=== PATIENT | female | born 1995 | race Caucasian/White ===

== ENCOUNTER 2017-03-23 12:52 | Emergency (ER) | payer BC, OTHER ==
[2017-03-23 12:58] VITALS: RESP 18; TEMP 98.4
--- NOTE | 2017-03-23 14:25 | EDPHY ---
H & P Stated Complaint: Asthma exacerbation; in NAD Time Seen by Provider: 03/23/17 14:24 - Personal History LMP (Females 10-55): 8-14 Days Ago Current Tetanus Diphtheria and Acellular Pertussis (TDAP): Yes - Medical/Surgical History Hx Asthma: Yes Other PMH: asthma - Social History Smoking Status: Never smoked Constitutional: Initial Vital Signs Temperature (C) 36.9 C 03/23/17 12:56 Heart Rate 94 03/23/17 12:56 Respiratory Rate 18 03/23/17 12:56 Blood Pressure 123/92 H 03/23/17 12:56 O2 Sat (%) 97 03/23/17 12:56 O2 Delivery Mode Room Air Allergies/Adverse Reactions: No Known Allergies Allergy (Unverified 03/23/17 12:55) Home Medications: Medication Instructions Recorded Albuterol [Proventil Inhaler HFA 1 - 2 puffs IH Q4H 03/23/17 (*)] Fluticasone Hfa 110 Mcg [Flovent 120 puffs IH 03/23/17 Hfa] Medical Decision Making - Diagnostics Imaging: I viewed and interpreted images myself ED Course/Re-evaluation: CHIEF COMPLAINT: Dyspnea, chills HISTORY OF PRESENT ILLNESS: The patient is a 21 y/o female with a history of asthma 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 The patient states she started getting a cold prior to dyspnea onset with sore throat, nasal congestion, and pleuritic upper chest pain. She then developed associated chills and myalgias. She describes her dyspnea as difficulty taking a deep breath. No fever, vomiting , abdominal pain, diarrhea. She is otherwise healthy. She did not get a flu vaccination this year. REVIEW OF SYSTEMS: A 10 point review of systems was performed and is negative with the exception of the elements mentioned in the history of present illness. PHYSICAL EXAM: HR, BP, O2 Sat, RR. Temp noted General Appearance: Alert, well hydrated, appropriate, and non-toxic appearing. Head: Atraumatic without scalp tenderness or obvious injury Eyes: Pupils equal, round, reactive to light and accommodation, EOMI, no trauma , no injection. Ears: Clear bilaterally, no perforation, normal landmarks Nose: Atraumatic, no rhinorrhea, clear. Throat: There is no erythema or exudates, no lesions, normal tonsils, mucus membranes moist. Neck: Supple, nontender, no lymphadenopathy. Respiratory: No retractions, no distress, no wheezes, and no accessory muscle use. Lungs are have coarse rhonchi to auscultation bilaterally. Cardiovascular: Regular rate and rhythm, no murmurs, rubs, or gallops. Good capillary refill all extremities. Gastrointestinal: Abdomen is soft, nontender, non-distended, no masses, no rebound, no guarding, no peritoneal signs. Musculoskeletal: Normal active ROM of all extremities, atraumatic. Neurological: Alert, appropriate, and interactive. The patient has non-focal cranial nerves, motor, sensory, and cerebellar exam. Skin: No rashes, good turgor, no nodules on palpation. 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 [employer] student. Nonsmoker DIAGNOSTICS/PROCEDURES/CRITICAL CARE TIME: Chest x-ray: bronchitis DIFFERENTIAL DIAGNOSIS: The differential diagnosis for the patient's shortness of breath and chills included but was not limited to influenza, asthma exacerbation due to URI, viral syndrome, pneumonia, myocardial infarction , acute mountain sickness, high altitude pulmonary edema, congestive heart failure, and pulmonary embolus. MEDICAL DECISION MAKING: This is a healthy 21 y/o female with a history of asthma who presents with a 2- day history of dyspnea, chills, and myalgias. Home treatments have not improved symptoms. She has coarse rhonchi bilaterally, but no wheezes on auscultation. Her presentation is more consistent with influenza/URI rather than just an asthma exacerbation. Plan for flu swab, chest x-ray, duo neb, and 10 PO Decadron. Chest x-ray shows bronchitis. Flu swab positive for flu A. Reassessed patient and discussed work up. Recommended standard flu and bronchitis home care and follow up. Return precautions discussed. She is comfortable with plan for discharge. - Data Points Laboratory Results: 03/23/17 14:45 Nasal Influenza A PCR FLU A DETECTED H (NEGATIVE) Nasal Influenza B PCR NEGATIVE FOR FLU B (NEGATIVE) RSV (PCR) NEGATIVE FOR RSV (NEGATIVE) Medications Given: Discontinued Medications Albuterol/Ipratropium (Duoneb) 3 ml IH EDNOW ONE Stop: 03/23/17 14:35 Last Admin: 03/23/17 14:57 Dose: 3 ml Dexamethasone (Decadron Injection) 10 mg PO EDNOW ONE Stop: 03/23/17 14:39 Last Admin: 03/23/17 14:57 Dose: 10 mg Departure - Departure Disposition: Home, Routine, Self-Care Clinical Impression: Bronchitis, Influenza A Condition: Good Instructions: Acute Bronchitis (ED), Influenza (ED) Additional Instructions: 1. Use albuterol inhaler as prescribed when needed for shortness of breath. 2. Increase fluid intake. Rest. 3. Tylenol and ibuprofen as directed for fever and achiness. 4. Cover your cough and practice good hand hygiene as you are currently contagious. Limit contact with others until symptoms improve. 5. Follow up with your primary care provider for unimproved symptoms over the next week. 6. Return to the ED for worsening of condition. Adult Pain & Fever Control: We recommend Acetaminophen (Tylenol) and Ibuprofen (Motrin,Advil) for pain and fever control. When fever is high or pain severe, both drugs can be used at the same time, but at different intervals. Please note the time differences. Your dose is: Acetaminophen 650mg every 4 to 6 hours Ibuprofen 600mg every 6-8 hours with food Note: do not take Acetaminophen with Hydrocodone (Vicodin, Lortab) or Oxycodone (Percocet). These medications also contain Acetaminophen. No more than 3000mg of Acetaminophen should be taken in 24 hours (for an adult). Referrals: Darshana Israel DO [Primary Care Provider] - As per Instructions Report Scribed for: Abel Culp Report Scribed by: Beth Alvarado Date of Report: 03/23/17 Time of Report: 14:38
[2017-03-23] MEDS ORDERED: IPRATROPIUM/ALBUTEROL 3 ML DEYVIAL IH ONE (14:34)
[2017-03-23] MEDS ORDERED: DEXAMETHASONE 10 MG/ML VIAL PO ONE (14:38)
[2017-03-23] MEDS ORDERED: DEXAMETHASONE 4 MG TAB ONE (14:55)
[2017-03-23 16:04] VITALS: BP 132/80; PULSE 88; O2SAT 96
== END 2017-03-23 16:04 | disposition home or self-care (01) ==
DX: J10.1 Influenza due to other identified influenza virus with other respiratory manifestations (principal); J40 Bronchitis, not specified as acute or chronic
CPT/HCPCS: J1100